=== PATIENT | male | born 1950 | race Caucasian/White ===

== ENCOUNTER 2018-03-03 14:44 | Emergency (ER) | payer MEDICARE ==
[2018-03-03 14:50] VITALS: RESP 18; TEMP 97.8
[2018-03-03] MEDS ORDERED: DIPH,PERTUS(ACELL)TETVAC-LF 0.5 ML VIAL IM ONE (15:58)
--- NOTE | 2018-03-03 15:58 | ED ---
General Adult HPI - General Chief complaint: Wound/Laceration Stated complaint: finger lac Time Seen by Provider: 03/03/18 15:05 Source: patient, RN notes reviewed Mode of arrival: ambulatory Limitations: no limitations - History of Present Illness Initial comments: Patient is a 67-year-old male who presents to the emergency department with complaints of a laceration to his left index finger. He stated that he was using a automatic corn grinder operator and that he cut his finger today around 10:30 AM. He does not know when his last Tetanus vaccine was. Patient denies any recent fever, chills , shortness of breath, chest pain, back pain, abdominal pain, nausea or vomiting , numbness or tingling, headaches or visual changes, or any other complaints. - Related Data Allergies Allergy/AdvReac Type Severity Reaction Status Date / Time codeine Allergy Hallucinati Verified 03/03/18 14:50 ons Review of Systems ROS Statement: Those systems with pertinent positive or pertinent negative responses have been documented in the HPI. ROS Other: All systems not noted in ROS Statement are negative. Past Medical History Past Medical History: No Reported History History of Any Multi-Drug Resistant Organisms: None Reported Past Surgical History: Joint Replacement, Tonsillectomy Past Psychological History: No Psychological Hx Reported Smoking Status: Never smoker Past Alcohol Use History: Occasional Past Drug Use History: None Reported General Exam - General Exam Comments Initial Comments: General: Well-developed, well-nourished, no acute distress HEENT: Normocephalic, atraumatic Neck: Supple, nontender Chest/Lungs: Normal respirations, no signs of respiratory distress, clear to auscultation bilaterally, no wheezes, rales, or rhonchi Cardiac: Regular rate and rhythm, normal S1-S2, no murmurs rubs or gallops. Radial pulses 2+ bilaterally. Cap refill <3 seconds bilateral hands. Abdomen/GI: Soft, nontender Musculoskeletal: Nontender, full range of motion, no edema, strength equal bilaterally Skin: Superficial 1.5 cm laceration to left index finger. Warmth, no cyanosis or diaphoresis. Sensation intact bilateral hands. Neurologic: A&O x 3 Psychiatric: Mood and affect normal, judgment normal Limitations: no limitations Course Vital Signs 03/03/18 03/03/18 03/03/18 14:47 17:19 17:27 Temperature 97.8 F 97.8 F Pulse Rate 63 59 L 59 L Respiratory 18 18 18 Rate Blood Pressure 152/83 140/90 140/90 O2 Sat by Pulse 96 96 Oximetry Procedures - Laceration Laceration #1 Consent Obtained: verbal consent Time Out Performed: Yes Indication: laceration Site: hand (index finger left hand) Description: linear, clean Pre-repair: wound explored, irrigated extensively Patient Tolerated Procedure: well, no complications Additional Comments: Skin glue applied. Neurovascularly intact after procedure. Medical Decision Making - Medical Decision Making Patient is a 67-year-old man who presented to the emergency department with a 1.5 cm laceration to his left index finger from earlier today. He did not know when his last tetanus vaccination was done, so he was given one here. The laceration is fairly superficial. It was irrigated with sterile saline. Skin glue was applied. Patient was instructed to return to the emergency department if there are any signs of infection including redness, swelling, drainage, fevers, chills. Disposition Clinical Impression: Laceration Disposition: HOME SELF-CARE Condition: Good Instructions: Finger Laceration (ED), Skin Adhesive Care (ED) Additional Instructions: Follow-up with primary care doctor in 2 days. Return to the emergency department if any redness, swelling, drainage, fevers, chills or other signs of infection or any other concerns. Is patient prescribed a controlled substance at d/c from ED?: No Referrals: Eric Jules MD [Primary Care Provider] - 1-2 days Time of Disposition: 17:23
[2018-03-03] MEDS ORDERED: TOPICAL SKIN ADHESIVE 1 EACH AMP TOPICAL ONE (16:03)
[2018-03-03 17:21] VITALS: BP 140/90; PULSE 59
== END 2018-03-03 17:27 | disposition home or self-care (01) ==
LOC: EC 14:44
DX: S61.211A Laceration without foreign body of left index finger without damage to nail, initial encounter (principal); Z23 Encounter for immunization; Z88.5 Allergy status to narcotic agent; W27.4XXA Contact with kitchen utensil, initial encounter; Y92.009 Unspecified place in unspecified non-institutional (private) residence as the place of occurrence of the external cause; Y93.89 Activity, other specified
CPT/HCPCS: 12001; 90471; 90715; 99282

== ENCOUNTER 2018-04-19 09:15 | Day surgery (SDC) | payer MEDICARE ==
[2018-04-15 14:53] VITALS: BMI 29.9
[~2018-04-19 09:15] MED LIST: LACTATED RINGERS 1,000 ML IV SCH
[2018-04-19 09:51] VITALS: TEMP 97
[2018-04-19] MEDS ORDERED: LIDOCAINE 1% 20 ML VIAL (10MG/ML) FOR IV START INTRADERMA ONE (10:00)
[2018-04-19] MEDS ORDERED: LIDOCAINE 1% INJ 10MG/ML (20 ML MDV) ONE (10:38)
[2018-04-19] MEDS ORDERED: PROPOFOL 10 MG/ML 20 ML VIAL IV ONE (10:38)
--- NOTE | 2018-04-19 11:06 | P.PCN ---
Date of Procedure: 04/19/18 Procedure(s) Performed: Procedure: Total colonoscopy. Preoperative diagnosis: Screening for neoplasia area Postoperative diagnosis: Sigmoid diverticulosis with no evidence of acute diverticulitis, strictures, polyps or cancer. Preparation: HalfLytely prep. Sedation: Was provided by anesthesia. Brief clinical history: The patient is a 67-year-old male who is scheduled for this evaluation for screening for neoplasia age being his risk factor. He had a prior exam around 10 years ago. The patient has no abdominal complaints, bleeding or anemia. Procedure: With the patient on his left lateral decubitus position and after informed consent and adequate sedation, the perianal area was inspected and it did not show any fissures or fistulas. He were no masses felt on digital rectal examination. The Olympus CFH 190L video colonoscope was then inserted in the rectum in the usual fashion and advanced to the cecum. There were few diverticular orifices seen scattered in the sigmoid but I saw no evidence of acute diverticulitis or strictures. No polyps or tumors were seen. I retroflexed the endoscope in the rectum before the endoscope was withdrawn. The patient tolerated the procedure well. Plan: The patient was reassured. Discussed dietary measures. He will follow up with you as planned and I recommended repeat exam in 10 years.
[2018-04-19 11:24] VITALS: BP 128/78; PULSE 55; RESP 18
== END 2018-04-19 11:56 | disposition home or self-care (01) ==
LOC: ORWHC2ENDO 09:15
DX: Z12.11 Encounter for screening for malignant neoplasm of colon (principal); K57.30 Diverticulosis of large intestine without perforation or abscess without bleeding; I10 Essential (primary) hypertension; E78.5 Hyperlipidemia, unspecified; Z88.5 Allergy status to narcotic agent; Z79.1 Long term (current) use of non-steroidal anti-inflammatories (NSAID); Z79.82 Long term (current) use of aspirin
CPT/HCPCS: J2001; J2704; G0121

== ENCOUNTER 2020-04-02 11:48 | Emergency (ER) | payer MEDICARE ==
[2020-04-02 11:57] VITALS: RESP 18
[2020-04-02] MEDS ORDERED: KETOROLAC 15 MG/ML 1 ML VIAL IVP STA (12:28)
[2020-04-02] MEDS ORDERED: DIAZEPAM 5 MG/ML 2 ML INJ IVP STA (12:29)
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
--- NOTE | 2020-04-02 13:20 | XR ---
EXAM TYPE: LUMBAR SPINE X RAY SERIES COMPARISON: NONE HISTORY: Pain TECHNIQUE: 4 views are submitted. FINDINGS: Alignment is anatomic. The pedicles are intact. The transverse processes are intact. There is no s pondylolysis or spondylolisthesis. Hypertrophic and degenerative changes of the spine with multileve l facet arthropathy. IMPRESSION: 1. Severe multilevel degenerative disc disease and facet arthropathy with large hypertrophic spurs..
[2020-04-02 13:40] LABS: Mucus,Urine Rare /hpf; RBC,Urine <1 /hpf (0-5)
[2020-04-02 13:54] LABS: Appearance,Urine Clear (Clear); Bilirubin,Urine Negative (Negative); Color,Urine Yellow; Glucose,Urine (UA) 1+ (Negative); Ketones,Urine Negative (Negative); Protein,Urine 1+ (Negative)
[2020-04-02 13:55] VITALS: BP 147/91; PULSE 50
[2020-04-02 13:55] LABS: Blood,Urine Small (Negative); Leukocyte Esterase,Urine Negative (Negative); Nitrite,Urine Negative (Negative); Urobilinogen,Urine <2.0 mg/dL (<2.0)
[2020-04-02 14:15] VITALS: TEMP 97.9
== END 2020-04-02 14:15 | disposition home or self-care (01) ==
LOC: EC 11:48
DX: M51.36 Other intervertebral disc degeneration, lumbar region (principal); M47.816 Spondylosis without myelopathy or radiculopathy, lumbar region; Z88.5 Allergy status to narcotic agent
CPT/HCPCS: 81001; 72110; 99284; 96374; 96375; J3360; J1885

== ENCOUNTER 2023-10-25 10:19 | Emergency (ER) | payer MEDICARE ==
[2023-10-25 10:55] VITALS: RESP 18
[2023-10-25] MEDS: ACETAMINOPHEN TAB 500 MG TAB PO STA (10:55)
[2023-10-25] MEDS: traMADol 50 MG TAB PO STA (10:56)
[2023-10-25] MEDS: BENZOCAINE/MENTHOL SPRAY 1 GM/SPRAY AEROSOL TOPICAL STA (11:17)
[2023-10-25] MEDS: NEOMYCIN-BACITRACIN-POLY OINT 14 GM TUBE TOPICAL STA (11:19)
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
[2023-10-25] MEDS: traMADol 50 MG STARTER PACK 3 TAB BTL PO STA (11:54)
[2023-10-25 12:36] VITALS: BP 168/80; PULSE 56; TEMP 98
== END 2023-10-25 12:30 | disposition home or self-care (01) ==
LOC: EC 10:19
DX: T22.211A Burn of second degree of right forearm, initial encounter (principal); T22.212A Burn of second degree of left forearm, initial encounter; T24.202A Burn of second degree of unspecified site of left lower limb, except ankle and foot, initial encounter; T31.0 Burns involving less than 10% of body surface; Z88.5 Allergy status to narcotic agent; X08.8XXA Exposure to other specified smoke, fire and flames, initial encounter
CPT/HCPCS: 16020; 99283